=== PATIENT | male | born 1970 | race Caucasian/White ===

== ENCOUNTER 2016-05-19 12:13 | Emergency (ER) | payer OTHER ==
[~2016-05-19 12:13] MED LIST: BACTRIM D.S. TAB1 EA PO; CIPROFLOXACIN500 M1 PO; PERCOCET 7.5-31 EACH PO; PROBIOTIC1 EAC1 PO
== END 2016-05-19 13:35 | disposition home or self-care (01) ==
LOC: ER1 12:13
DX: L02.01 Cutaneous abscess of face (principal); F17.210 Nicotine dependence, cigarettes, uncomplicated; Z88.5 Allergy status to narcotic agent
CPT/HCPCS: 10060; 87070; 87077; 87186; 87205; 99282

== ENCOUNTER 2020-04-23 13:06 | Emergency (ER) | payer OTHER ==
[~2020-04-23 13:06] MED LIST changes: +AEROCHAMBER1 EA XX; +VENTOLIN HFA 66.7 GM INH; +ZOFRAN ODT 4 MG4 MG PO
[2020-04-23 14:28] LABS: HEMOGLOBIN 16.7 gm/dl (14.0-17.5); RED BLOOD COUNT 5.58 M/UL (4.20-5.50); WHITE BLOOD COUNT 6.1 K/UL (4.5-11.0)
[2020-04-23 14:58] LABS: BUN/CREATININE RATIO 12 (0-10)
[2020-04-24 05:09] LABS: HBSAG SCREEN Negative (Negative); HEP A AB, IGM Negative (Negative); HEP B CORE AB, IGM Negative (Negative); HEP C VIRUS AB >11.0 (0.0-0.9)
== END 2020-04-23 16:54 | disposition home or self-care (01) ==
LOC: ER1 13:06
PROVIDERS: Physician Assistant
DX: R10.10 Upper abdominal pain, unspecified (principal); R79.89 Other specified abnormal findings of blood chemistry; R74.8 Abnormal levels of other serum enzymes; J44.9 Chronic obstructive pulmonary disease, unspecified; F17.200 Nicotine dependence, unspecified, uncomplicated
CPT/HCPCS: 80053; 80074; 80307; 82150; 83690; 85025; 85610; 99284; Q9967

== ENCOUNTER 2021-06-12 09:12 | Emergency (ER) | payer OTHER ==
[2021-06-12 10:24] LABS: HEMOGLOBIN 16.5 gm/dl (14.0-17.5); RED BLOOD COUNT 5.35 M/UL (4.20-5.50); WHITE BLOOD COUNT 10.5 K/UL (4.5-11.0)
[2021-06-12 10:45] LABS: BUN/CREATININE RATIO 12 (0-10)
[2021-06-12] MEDS ORDERED: BACTRIM DS TAB1 EACH PO (11:19)
[2021-06-12] MEDS ORDERED: CEPHALEXIN500 M1 PO (11:19)
== END 2021-06-12 11:46 | disposition home or self-care (01) ==
LOC: ER1 09:12
PROVIDERS: Emergency Medicine
DX: M70.41 Prepatellar bursitis, right knee (principal); F17.200 Nicotine dependence, unspecified, uncomplicated; Z88.5 Allergy status to narcotic agent; W01.0XXA Fall on same level from slipping, tripping and stumbling without subsequent striking against object, initial encounter
CPT/HCPCS: 73564; 80053; 85025; 85652; 86140; 87040; 99283; J0696